=== PATIENT | male | born 1960 | race Hispanic/Latino ===

== ENCOUNTER 2018-12-16 15:28 | Emergency (ER) | payer SELFPAY ==
[2018-12-16] MEDS ORDERED: CATAPRES PO ONE (16:16)
[2018-12-16] MEDS ORDERED: CATAPRES ONE (16:17)
--- NOTE | 2018-12-16 16:26 | Emergency Department Report ---
Blank Doc - Documentation Documentation: was walking and tripped in parking lot falling forward on hands c/o of pain. C mone to ED because specialized developer advised him to be checked out. Plan xray
--- NOTE | 2018-12-16 17:28 | XRay Report ---
FINAL REPORT PROCEDURE: Lumbar spine. TECHNIQUE: AP and lateral views. HISTORY: Patient fell 2 days ago. COMPARISON: No prior studies are available for comparison. FINDINGS: The lumbar vertebrae have normal height and alignment. There are no fractures. There is no spondyloli sthesis. There are vertebral body osteophytes throughout the lumbar spine. There is mild disc space n arrowing at L5-S1. The sacrum and sacroiliac joints are unremarkable. IMPRESSION: No evidence of acute lumbar spine injury.
--- NOTE | 2018-12-16 17:36 | XRay Report ---
FINAL REPORT PROCEDURE: Cervical spine. TECHNIQUE: Three views. HISTORY: Patient fell 2 days ago, neck pain. COMPARISON: No prior studies are available for comparison. FINDINGS: The cervical vertebrae have normal height and alignment. There are no fractures. There is no subluxat ion. The disc spaces appear adequate. There are anterior vertebral body osteophytes from C4 through C 7. The prevertebral soft tissues have normal thickness. IMPRESSION: No evidence of acute cervical spine injury.
--- NOTE | 2018-12-16 19:50 | Emergency Department Report ---
ED Fall HPI - General Chief Complaint: Fall Stated Complaint: NECK/KNEE/BACK PAIN Time Seen by Provider: 12/16/18 16:23 Source: patient Mode of arrival: Ambulatory - History of Present Illness Initial Comments: 58-year-old -[place] male presents to the emergency room status post tripped [place] on Saturday. Patient states he saw his his hernia today in the recommended him to be followed up in the emergency room to get checked. Patient denies any head injury denies any loss of consciousness. Patient complains of left buttocks and neck and knee pain. Patient has taken nothing for his pain but reports his pain is 7 out of 10. Patient denies any past medical history but is noted to have elevated blood pressure in triage. Patient reports he takes no medications on a daily basis and has no known drug allergies. MD Complaint: fall -: days(s) (3) Fall From: standing When Fall Occurred: # days [employer] (3) Fall Witnessed: yes, by bystander Place Fall Occurred: street ([place]) Loss of Consciousness: none Prolonged Down Time?: no Symptoms Prior to Fall: none Location: back, buttocks Location - Extremities: Right: Knee Severity: severe Severity scale (0 -10): 7 Quality: burning (right knee), aching (back and neck) Context: tripped/slipped Associated Symptoms: headache, neck pain - Related Data Previous Rx's Medication Instructions Recorded Last Taken Type amLODIPine [Norvasc] 5 mg PO DAILY #30 tab 12/16/18 Unknown Rx Allergies Allergy/AdvReac Type Severity Reaction Status Date / Time No Known Allergies Allergy Unverified 12/16/18 15:30 ED Review of Systems ROS: Stated complaint: NECK/KNEE/BACK PAIN Other details as noted in HPI Comment: All other systems reviewed and negative ED Past Medical Hx - Past Medical History Previous Medical History?: No - Surgical History Past Surgical History?: No - Social History Smoking Status: Never Smoker Substance Use Type: None - Medications Home Medications: Home Medications Medication Instructions Recorded Confirmed Last Taken Type amLODIPine [Norvasc] 5 mg PO DAILY #30 tab 12/16/18 Unknown Rx ED Physical Exam - General Limitations: No Limitations General appearance: alert, in no apparent distress - Head Head exam: Present: atraumatic, normocephalic - Eye Eye exam: Present: EOMI - ENT ENT exam: Present: mucous membranes moist, normal external ear exam - Neck Neck exam: Present: tenderness, full ROM. Absent: meningismus, lymphadenopathy, thyromegaly - Respiratory Respiratory exam: Present: normal lung sounds bilaterally. Absent: respiratory distress - Cardiovascular Cardiovascular Exam: Present: regular rate, normal rhythm. Absent: systolic murmur, diastolic murmur, rubs, gallop - GI/Abdominal GI/Abdominal exam: Present: soft, normal bowel sounds - Back Exam Back exam: Present: full ROM, tenderness, muscle spasm - Neurological Exam Neurological exam: Present: alert, oriented X3 - Psychiatric Psychiatric exam: Present: normal affect, normal mood - Skin Skin exam: Present: warm, dry, intact, normal color. Absent: rash ED Course Vital Signs 12/16/18 12/16/18 12/16/18 16:10 16:17 19:55 Temperature 98 F Pulse Rate 81 81 65 Respiratory 18 16 Rate Blood Pressure 197/124 197/124 Blood Pressure 163/107 [Left] O2 Sat by Pulse 100 99 Oximetry ED Medical Decision Making - Radiology Data Radiology results: report reviewed Patient: TAMMY ZARAGOZA MR#: [id number] : 1960 Acct:[id number] Age/Sex: 58 / M ADM Date: 12/16/18 Loc: ED Attending Dr: Ordering Physician: SASKIA DUMONT Date of Service: 12/16/18 Procedure(s): XR spine lumbosacral 2-3V Accession Number(s): [id number] cc: SASKIA DUMONT Fluoro Time In Minutes: FINAL REPORT PROCEDURE: Lumbar spine. TECHNIQUE: AP and lateral views. HISTORY: Patient fell 2 days ago. COMPARISON: No prior studies are available for comparison. FINDINGS: The lumbar vertebrae have normal height and alignment. There are no fractures. There is no spondylolisthesis. There are vertebral body osteophytes throughout the lumbar spine. There is mild disc space narrowing at L5-S1. The sacrum and sacroiliac joints are unremarkable. IMPRESSION: No evidence of acute lumbar spine injury. Transcribed By: [facility] Dictated By: JOANN TRACEY MD Electronically Authenticated By: JOANN TRACEY MD Signed Date/Time: 12/16/181727 DD/ 25 TD/TT: 12/16/181725 Patient: TAMMY ZARAGOZA MR#: [id number] : 1960 Acct:[id number] Age/Sex: 58 / M ADM Date: 12/16/18 Loc: ED Attending Dr: Ordering Physician: SASKIA DUMONT Date of Service: 12/16/18 Procedure(s): XR spine cervical 2-3V Accession Number(s): [id number] cc: SASKIA DUMONT Fluoro Time In Minutes: FINAL REPORT PROCEDURE: Cervical spine. TECHNIQUE: Three views. HISTORY: Patient fell 2 days ago, neck pain. COMPARISON: No prior studies are available for comparison. FINDINGS: The cervical vertebrae have normal height and alignment. There are no fractures. There is no subluxation. The disc spaces appear adequate. There are anterior vertebral body osteophytes from C4 through C7. The prevertebral soft tissues have normal thickness. IMPRESSION: No evidence of acute cervical spine injury. Transcribed By: [facility] Dictated By: JOANN TRACEY MD Electronically Authenticated By: JOANN TRACEY MD Signed Date/Time: 12/16/181735 DD/ 34 TD/TT: 12/16/181734 - Medical Decision Making Patient has been evaluated by this provider in fast track. X-rays were within normal limits. Discussed patient he can take [id number]-[id number] pain medications such as Tylenol or ibuprofen or Aleve. Exelon discussed the patient I will place him on amlodi pine 5 mg by mouth daily for his blood pressure and he is to follow up with the primary care provider I have listed one below for his convenience. Patient verbalized understanding. Critical care attestation.: If time is entered above; I have spent that time in minutes in the direct care of this critically ill patient, excluding procedure time. ED Disposition Clinical Impression: Muscle strain of upper back Fall Qualifiers: Encounter type: initial encounter Qualified Code(s): W19.XXXA - Unspecified fall, initial encounter Neck muscle strain Qualifiers: Encounter type: initial encounter Qualified Code(s): S16.1XXA - Strain of muscle, fascia and tendon at neck level, initial encounter HTN (hypertension) Qualifiers: Hypertension type: unspecified Qualified Code(s): I10 - Essential (primary) hypertension Disposition: DC-01 TO HOME OR SELFCARE Is pt being admited?: No Does the pt Need Aspirin: No Condition: Stable Instructions: Low Back Strain (ED), Hypertension (ED) Additional Instructions: Please take rbwk-kbz-vooofvo pain medication for your pain. Please take amlodipine 5 mg daily you can obtain this medication prescription at [facility] for free. It's very important for you to follow up with the primary care provider for your elevated blood pressure. If her blood pressure is not treated here putting yourself at risk for kidney failure heart attacks or strokes. Prescriptions: amLODIPine [Norvasc] 5 mg PO DAILY #30 tab Ref[facility]: [facility] [Primary Care Provider] - 3-5 Days [facility] [Provider Group] - 3-[address] [facility] [place] [Outside] - 3-5 Days Forms: Work/School Release Form(ED)
[2018-12-16 19:56] VITALS: BP 163/107
== END 2018-12-16 20:40 | disposition home or self-care (01) ==
LOC: ED 15:28
DX: S16.1XXA Strain of muscle, fascia and tendon at neck level, initial encounter (principal); S29.012A Strain of muscle and tendon of back wall of thorax, initial encounter; W18.30XA Fall on same level, unspecified, initial encounter; Y93.89 Activity, other specified; Y99.8 Other external cause status; Y92.410 Unspecified street and highway as the place of occurrence of the external cause
CPT/HCPCS: 72040; 72100; 99283